=== PATIENT | female | born 1990 | race Caucasian/White ===

== ENCOUNTER 2018-10-31 11:38 | Emergency (ER) | payer SELFPAY ==
[2018-10-31 11:39] VITALS: BP 151/106; PULSE 89; RESP 18; TEMP 37; O2SAT 100; BMI 21.4
--- NOTE | 2018-10-31 12:05 | ED.VISSUMM ---
- ER Visit Summary Date of Service: 10/31/18 Chief Complaint: Rash History of Present Illness: The patient is a 28 F who states that several days ago she had pain in the left low back radiating to the buttock and down her leg. She developed a rash. Continues to hurt. Physical Examination: Afebrile vital signs stable There is the rash of shingles in the L4 dermatome. No evidence of secondary infection. No evidence of meningitis Emergency Department Course and Treatment: Patient was started on acyclovir prednisone a few [place]. Follow-up with primary care return if worsening or concerns Impression: 1. Shingles of the L4 dermatome This note was generated with [employer] dictation software. It may contain incorrect words, spelling, and punctuation that were not noted in review of the chart prior to signing ED Disposition - Plan for ED Patient: Disposition: Home or Assisted Living Instructions: ED Shingles Prescriptions: Hydrocodone Bitart/Apap 5-325 [[place] 5MG-325MG] 1 tab PO Q6H PRN PRN 3 Days #12 tab PRN Reason: Pain Acyclovir [Zovirax] 800 mg PO 5X/DAY #35 tab predniSONE tablet 60 mg PO DAILY #15 tab Referrals: Harjinder Holt DO [Primary Care Provider] - As Needed
== END 2018-10-31 12:30 | disposition home or self-care (01) ==
LOC: ED 12:22
PROVIDERS: Emergency Provider Emergency Medicine; Family Provider Family Medicine; PCP Family Medicine
DX: B02.9 Zoster without complications (principal); Z79.899 Other long term (current) drug therapy; Z87.891 Personal history of nicotine dependence
CPT/HCPCS: 99282

== ENCOUNTER → 2018-11-21 13:11 | Outpatient (CLI) | payer OTHER, SELFPAY ==
[2018-10-31 11:39] VITALS: BMI 21.4
[2018-11-21 15:15] LABS: Absolute Lymphocyte Count 1.96 X10^3/ul (0.83-4.51); Absolute Neutrophil Count 2.8 X10^3/uL (2.0-7.7); Basophil# 0.02 X10^3/uL; Basophil% 0.4 % (0-1); Eosinophil# 0.15 X10^3/uL; Eosinophils% 2.8 % (0-5); Hematocrit 39.4 % (37-47); Hemoglobin 13.2 g/dl (12.0-15.0); Lymphocyte # 1.96 X10^3/ul (4.0); Lymphocyte % 36.2 % (19-41); Mean Corp Hgb Conc 33.5 g/gl (32-36); Mean Corpuscular Hgb 30.6 pg (27.0-32.0); Mean Corpuscular Volume 91.4 fL (81-99); Mean Platelet Vol. 11.7 fl (6.2-12.0); Monocyte# 0.44 X10^3/uL; Monocyte% 8.1 % (0-10); Neutrophil # 2.84 X10^3/uL (2.7-7.7); Neutrophil % 52.3 % (47-70); Platelet Count 289 K/mm3 (150-450); RBC Distribution Width CV 12.8 % (11.6-14.6); Red Blood Count 4.31 M/mm3 (4.2-5.4); White Blood Count 5.4 K/mm3 (4.4-11.0)
[2018-11-21 15:37] LABS: ALB/GLOB Ratio 1.4 RATIO (0.9-2.4); AST(SGOT) 12 U/L (15-37); Alanine Aminotransfer ALT/SGPT 19 U/L (13-56); Alkaline Phosphatase 54 U/L (45-117); Anion Gap 2 (5-15); BUN 10 mg/dL (7-18); BUN/Creat Ratio 12.4 RATIO (10-20); Calcium,Total 8.3 mg/dL (8.5-10.1); Chloride 105 mmol/L (98-107); Creatinine, Serum 0.81 mg/dL (0.55-1.02); EST Glomerular Filtration Rate 90 mL/min (>60); Est Glom Filt Rate - Afr Amer 108 mL/min (>60); Follicle Stimulating Hormone 4.2 mIU/mL; Globulin 2.9 g/dL (2.2-4.2); Glucose 95 mg/dL (74-106); Luteinizing Hormone 6.2 mIU/mL; Potassium 3.7 mmol/L (3.5-5.1); Prolactin 9.6 ng/mL; Protein, Total 6.9 g/dL (6.4-8.2); Sodium Level 138 mmol/L (136-145); T4 Free Direct 1.03 ng/dL (0.76-1.46)
[2018-11-21 15:45] LABS: POSITIVE COUNT NO; POSITIVE DIFFERENTIAL NO; POSITIVE MORPHOLOGY NO
[2018-11-23 15:57] LABS: Adrenocorticotropic Hormone 12.2 pg/mL (7.2-63.3)
== END ==
PROVIDERS: Family Provider Family Medicine; PCP Family Medicine; Visit Provider Family Medicine
DX: R53.83 Other fatigue (principal); N64.52 Nipple discharge; R51 Headache
CPT/HCPCS: 36415; 80053; 82024; 83001; 83002; 84146; 84439; 84443; 85025

== ENCOUNTER → 2018-11-29 12:39 | Outpatient (CLI) | payer OTHER, SELFPAY ==
[2018-10-31 11:39] VITALS: BMI 21.4
--- NOTE | 2018-11-29 12:47 | MRI_ITS ---
STUDY: MRI BRAIN WITH AND WITHOUT CONTRAST REASON FOR EXAM: Female, 28 years old. GAMING, BREAST DISCHARGE, elevated prolactin level TECHNIQUE: Standardized multiplanar fat and water weighted pulse sequences were obtained. 12 IV Dotarem was administered for the contrast portion of the examination. COMPARISON: None. FINDINGS: Normal size of the ventricles and extra-axial spaces for the patient's age. Normal white matter tracts of the supratentorial brain. Normal bilateral basal ganglia. Normal thalami. There is no extra-axial fluid accumulation. Normal flow voids within the major intracranial circulation suggesting patency by spin echo criteria. Normal venous enhancement. There is no enhancing intra-axial or extra-axial abnormality. Normal sella turcica, pituitary gland, infundibular stalk, optic chiasm and hypothalamus. Normal tectal plate and pineal gland. Normal midbrain, leland and medulla. Normal cerebellum. Normal basal cisterns. Normal bilateral temporal bones. Normal bilateral internal auditory canals. No demonstrated orbital abnormality, within the constraints of a routine brain study. There is mucoperiosteal inflammatory disease of the maxillary sinuses consistent with mild chronic sinusitis. Normal calvarium and skull base. Normal visualized soft tissue structures. Normal visualized upper cervical spine. MRI/Brain W/WO Contrast IMPRESSION: Normal unenhanced and enhanced MRI of the brain. Electronically Signed: Jose Francisco Cantrell, at 7:59 EDT Tel , Service support ,
== END ==
PROVIDERS: Family Provider Family Medicine; PCP Family Medicine; Referring Provider Family Medicine; Visit Provider Family Medicine
DX: H53.9 Unspecified visual disturbance (principal); R51 Headache; N64.52 Nipple discharge
CPT/HCPCS: 70553; A9575

== ENCOUNTER → 2019-01-08 16:43 | Outpatient (CLI) | payer OTHER, SELFPAY ==
[2019-01-08 17:47] LABS: Internal QC Validated? YES +Cl - CLEAR BKGD; Pregnancy, Urine Negative Negative
[2019-01-08 17:51] LABS: Color, Urine Yellow (Yellow); Glucose, Dipstick Normal (Normal); Ketone-Dipstick Negative (Negative); Nitrite-Dipstick Negative (Negative); Occult Blood-Urine 10 /ul (Negative); Protein-Dipstick 15 mg/dl (Negative); Urine Bilirubin Dipstick Negative (Negative); Urine Clarity Cloudy (Clear); Urine Urobilinogen Normal (Normal)
[2019-01-08 18:34] LABS: Red Blood Cells-Urine 25-50 SEEN /hpf (0-5)
[2019-01-08 18:35] LABS: Leukocyte Esterase-Dipstick 100 /ul (Negative); White Blood Cells 25-50 SEEN /hpf (0-5)
[2019-01-08 18:36] LABS: Squamous Epithelial Cells - UA 10-25 SEEN /hpf (5-10)
[2019-01-08 18:37] LABS: Bacteria 2+ /hpf (None Seen); Calcium Oxalate Crystals Ur 2+ /hpf (<or=2+)
[2019-01-08 18:38] LABS: Mucous, Urine 1+ /hpf (<or=2+)
== END ==
PROVIDERS: Family Provider Family Medicine; PCP Family Medicine; Visit Provider Family Medicine
DX: R30.0 Dysuria (principal); R23.2 Flushing; N91.2 Amenorrhea, unspecified
CPT/HCPCS: 81001; 81025; 87086; 87088

== ENCOUNTER 2019-08-23 08:19 | Day surgery (SDC) | payer MEDICAID, SELFPAY ==
[2019-02-16 16:05] VITALS: BMI 23.6
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
[2019-08-23] VITALS (10 sets, daily range): BP systolic 104–119; BP diastolic 74–90; PULSE 43–87; RESP 15–16; TEMP 36.5–37.1; O2SAT 94–100; BMI 25.2
[2019-08-23] MEDS: Acetaminophen 500 MG Tablet 1000 MG PO (08:40)
[2019-08-23] MEDS: Celecoxib 200 MG Capsule 400 MG PO (08:40)
[2019-08-23 08:43] LABS: Internal QC Validated? YES +Cl - CLEAR BKGD; Pregnancy, Urine Negative Negative
[2019-08-23 08:44] LABS: Hematocrit 40.8 % (37-47); Hemoglobin 13.5 g/dL (12.0-15.0); Mean Corp Hgb Conc 33.1 g/dL (32-36); Mean Corpuscular Hgb 30.7 pg (27.0-32.0); Mean Corpuscular Volume 92.7 fL (81-99); Mean Platelet Vol. 11.6 fl (6.2-12.0); Platelet Count 259 K/mm3 (150-450); RBC Distribution Width CV 11.9 % (11.6-14.6); White Blood Count 6.6 K/mm3 (4.4-11.0)
[2019-08-23] MEDS: Lactated Ringers 1,000 ML 100 ML IV (09:00)
[2019-08-23 09:01] LABS: Anion Gap 5 (5-15); BUN 13 mg/dL (7-18); BUN/Creat Ratio 15.5 RATIO (10-20); Calcium,Total 8.5 mg/dL (8.5-10.1); Chloride 111 mmol/L (98-107); Creatinine, Serum 0.84 mg/dL (0.55-1.02); EST Glomerular Filtration Rate 85 mL/min (>60); Est Glom Filt Rate - Afr Amer 103 mL/min (>60); Glucose 94 mg/dL (74-106); Potassium 4.2 mmol/L (3.5-5.1); Sodium Level 144 mmol/L (136-145)
--- NOTE | 2019-08-23 09:50 | FALS_PTH ---
PATIENT: MONI TAVERAS LOC: [facility] [place] U#:[id number] AGE/SX: 28/F ROOM: RE08/23/[address]: Dr. Shelli Morillo MD : 1990 BED: DIS: 08/23/2019 SPEC #: [id number] RECD: 08/23/19 14:34 STATUS: ARLEY KATERIN #: [id number] CARLA: 08/23/19 09:[address]: Shelli Morillo DEPT: SURGICAL PATHOLOGY RECD BY: Juan J Capellan ENTERED: 08/24/19 10:54 SP TYPE: FALL TUBES OTHR DR: Dr. Harjinder Holt, DO Tissues: Fallopian tube Procedures: Surgery Specimen Level II HEADER OPERATION: Laparoscopic salpingectomy PRE-OP DIAGNOSIS: Elective sterilization TISSUE SUBMITTED: Bilateral fallopian tubes MICROSCOPIC DIAGNOSIS Bilateral fallopian tubes, salpingectomy: Bilateral fallopian tubes including fimbrial ends, no pathologic diagnosis. SJ:javier 08/27/19 MICROSCOPIC DESCRIPTION Slides are reviewed. GROSS DESCRIPTION Received is one container labeled with the patient's name and designated bilateral fallopian tubes. The specimen consists of bilateral fallopian tubes including fimbrial ends measuring 6.5 cm in length and 0.7 cm in diameter and 6.5 cm in length and 0.7 cm in diameter. The fallopian tubes are not identified as right or left. Sections reveal unremarkable cut surfaces. Senior Storage Engineer sections are submitted in two cassettes with each cassette containing one fallopian tube. / NIGEL:javier 08/24/19 TC:4 CPT: 38898 x2
[2019-08-23] MEDS: Lactated Ringers 1,000 ML 75 ML IV (11:50)
--- NOTE | 2019-08-23 11:51 | DCINST_ITS ---
Discharge Diet: No Restrictions - Increase fluid intake for the next 48 hours. Discharge Activity: Return to Normal Activity, May Drive - when you are no longer taking pain/narcotic meds., May Shower, May Take a Tub Bath - in 7 days Additional Activity Instructions:: Ambulate often the next week after surgery. Nothing in the vagina for 5 days. Call your doctor if your incision/area has: Continuous Slow Oozing, Sudden Increased Bleeding, Increased Pain/ Swelling, Increased Redness, Foul Smelling Discharge Call your doctor if you observe: Fever of 101 or Higher Cleanse incision/area with: Soap & Water, - - Your incisions have skin glue, it can get wet. Leave it on for 10-14 days Allergies/Adverse Reactions: Allergies cefaclor [From Ceclor] Allergy (Verified 08/23/19 08:47) Hives codeine Adverse Reaction (Verified 08/23/19 08:47) Nausea Medications to take at Discharge Ascorbic Acid [Vitamin C] 500 mg PO DAILY@0800 09/05/16 Cholecalciferol (Vitamin D3) [Vitamin D3] 2,000 unit PO DAILY 09/05/16 amlodipine 2.5 mg tablet 2.5 mg PO DAILY 02/15/19 fluticasone propionate 50 mcg/actuation nasal spray,suspension 1 spray INTRANASAL DAILY 02/15/19 losartan 25 mg tablet 25 mg PO DAILY #30 tab 02/16/19 Hydrocodone/Acetaminophen [[place] 5-325 Tablet] 1 each PO Q6H PRN PRN #12 tablet 08/23/19 The following prescriptions were given: Hydrocodone/Acetaminophen [[place] 5-325 Tablet] 1 each PO Q6H PRN PRN #12 tablet PRN Reason: Pain Score 6-10/10 Transmission Status: Sent to [id number] Primary Care Physician: Harjinder Holt DO [Primary Care Provider] - Test Results: Test results from this visit will be discussed in further detail at your follow- up appointment, if applicable. Please Follow Up With: Shelli Morillo MD - [phone] When: approximately 2 weeks or as needed
[2019-08-23] MEDS: Bupivacaine Mpf 0.5% 30 ML VIAL (12:10)
--- NOTE | 2019-08-23 12:15 | OP.PCM_ITS ---
Report of Operation Date of Procedure: 08/23/19 Pre-Operative Diagnosis: sterilization request Post-Operative Diagnosis: same Surgery/Procedure Performed:: laparoscopic bilateral salpingectomy through freight engineer: None Type of Anesthesia:: General Anesthesiologist: Luke Santizo Special Medications: none Specimen's removed: bilateral fallopian tubes Drains: none Estimated Blood Loss (mL): 10 Fluids Replaced: 1500 cc LR Description of Procedure: The patient was taken to the operating room where she was prepped and draped in the dorsolithotomy position. A weighted speculum was placed in the vagina and the anterior lip of the cervix was grasped with a tenaculum. The Keyla uterine manipulator was placed and the remainder of the instruments were removed from the vagina. Attention was turned to the abdomen. All port sites were infiltrated with 0.5% Marcaine before skin incisions were made. A 5 mm intraumbilical incision was made. The anterior abdominal wall was tented up with 2 towel clamps while a 5 mm blade less trocar and sleeve were directly inserted. Intraperitoneal placement was confirmed with the laparoscope. The pneumoperitoneum was created and the underlying abdominal contents were intact. The patient was placed in Trendelenburg. Right and left lower quadrant ports were placed under direct visualization lateral to the inferior epigastric vessels. The bowel was swept away and the above findings were noted. The LigaSure device was used to clamp seal and transect the antimesenteric portions of the right tube to the cornual insertion of the uterus. The tube was amputated from the uterus and the pedicles were all confirmed to be hemostatic. The same procedure was performed on the contralateral side. The specimens were brought out through a 5 mm port. The pedicles were again examined and found to be hemostatic. The lateral ports were removed under direct visualization and no active bleeding was noted. The pneumoperitoneum was released. The skin incisions were closed with Monocryl suture in a subcuticular fashion and skin glue . The vaginal instruments were removed and the vaginal sweep was completed by me. The procedure was performed by me. All sponge and needle counts were correct and the patient was taken to the recovery room in stable condition. Grafts/Implants Used: none - Complications none - Admit VTE Documentation VTE Present on Admission: No VTE Mechan Device Prophylaxis: SCD's VTE Pharm Prophylaxis ordered?: No Reason prophylaxis not ordered:: Treatment Not Indicated
== END 2019-08-23 15:06 | disposition home or self-care (01) ==
LOC: SDC 08:21 → AC 08:23
PROVIDERS: Anesthesiology; Family Provider Family Medicine; PCP Family Medicine; Referring Provider Obstetrics & Gynecology; Visit Provider Obstetrics & Gynecology
PROC: (CPT 58661; principal; 2019-08-23 09:35)
DX: Z30.2 Encounter for sterilization (principal); I45.6 Pre-excitation syndrome; I10 Essential (primary) hypertension; Z79.899 Other long term (current) drug therapy; Z87.891 Personal history of nicotine dependence
CPT/HCPCS: 58661; 36415; 80048; 81025; 85027; 88302; J7120

== ENCOUNTER → 2019-12-03 12:53 | Outpatient (CLI) | payer MEDICAID, SELFPAY ==
[2019-08-23 08:48] VITALS: BMI 25.2
== END ==
PROVIDERS: PCP Family Medicine; Referring Provider Family Medicine; Visit Provider Family Medicine
DX: J31.0 Chronic rhinitis (principal); R05 Cough

== ENCOUNTER 2021-09-23 03:13 | Outpatient (CLI) | payer MEDICAID, SELFPAY | END 2021-09-23 23:59 | disposition short-term general hospital (02) | LOC: LABSPEC 09-24 07:47 | PROVIDERS: PCP Family Medicine; Visit Provider Family Medicine | DX: Z20.828 Contact with and (suspected) exposure to other viral communicable diseases (principal) | CPT/HCPCS: 87635; U0003; U0005 ==

== ENCOUNTER 2021-10-07 13:32 | Outpatient (CLI) | payer MEDICAID, SELFPAY ==
[2021-10-07 14:09] LABS: Absolute Lymphocyte Count 1.52 X10^3/uL (0.83-4.51); Basophil# 0.02 X10^3/uL; Basophil% 0.4 % (0-1); Eosinophil# 0.03 X10^3/uL; Eosinophils% 0.6 % (0-5); Hematocrit 38.3 % (37-47); Hemoglobin 13.1 g/dL (12.0-15.0); Lymphocyte # 1.52 X10^3/ul (0.83-4.51); Lymphocyte % 28.8 % (19-41); Mean Corp Hgb Conc 34.2 g/dL (32-36); Mean Corpuscular Volume 90.5 fL (81-99); Mean Platelet Vol. 10.9 fl (6.2-12.0); Monocyte# 0.72 X10^3/uL; Monocyte% 13.6 % (0-10); NRBC Flagged by Analyzer 0 % (0-5); Neutrophil # 2.98 X10^3/uL (2.7-7.7); Neutrophil % 56.4 % (47-70); Platelet Count 278 K/mm3 (150-450); RBC Distribution Width CV 11.7 % (11.6-14.6); RBC Distribution Width SD 38.4 fl (35.1-43.9); Red Blood Count 4.23 M/mm3 (4.2-5.4); White Blood Count 5.3 K/mm3 (4.4-11.0)
[2021-10-07 14:36] LABS: ALB/GLOB Ratio 1.1 RATIO (0.9-2.4); AST(SGOT) 12 U/L (15-37); Alanine Aminotransfer ALT/SGPT 15 U/L (13-56); Albumin, Serum 3.6 g/dL (3.2-5.0); Alkaline Phosphatase 62 U/L (45-117); Anion Gap 5 (5-15); BUN 9 mg/dL (7-18); BUN/Creat Ratio 9.5 RATIO (10-20); CRP 4.68 mg/L (0.0-3.0); Chloride 103 mmol/L (98-107); Creatinine, Serum 0.95 mg/dL (0.55-1.02); EST Glomerular Filtration Rate 73 mL/min (>60); Est Glom Filt Rate - Afr Amer 89 mL/min (>60); Globulin 3.4 g/dL (2.2-4.2); Glucose 93 mg/dL (74-106); Potassium 4.2 mmol/L (3.5-5.1); Sodium Level 137 mmol/L (136-145)
[2021-10-07 14:42] LABS: Erythrocyte Sedimentation Rate 3 mm/hr (0-30)
[2021-10-10 12:28] LABS: SAR-COV-2 IGM ANTIBODY Negative (Negative)
== END 2021-10-07 23:59 | disposition home or self-care (01) ==
PROVIDERS: PCP Family Medicine; Referring Provider Family Medicine; Visit Provider Family Medicine
DX: Z01.84 Encounter for antibody response examination (principal); R50.9 Fever, unspecified
CPT/HCPCS: 36415; 80053; 85025; 85652; 86140; 86769